=== PATIENT | female | born 1985 | race Caucasian/White ===

== ENCOUNTER 2017-07-31 11:07 | Emergency (ER) | payer MEDICAID, OTHER ==
[~2017-07-31] VITALS: Ht 165.1 cm; Wt 50.0 kg
[~2017-07-31 11:07] MED LIST: TRAM50 PO
[2017-07-31 11:12] VITALS: BP 114/64; PULSE 95; RESP 16; TEMP 97.8; O2SAT 100
[2017-07-31] MEDS ORDERED: BACT800T5 PO (11:31)
[2017-07-31] MEDS ORDERED: MUPI2OIN TOPICAL (11:31)
--- NOTE | 2017-07-31 11:35 | PD ---
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 She states that it started as a pinpoint lesion but has increased in size and become more painful. She describes it as moderate pain. She is having difficulty putting her apron on for work and is concerned that it is a bad infection. She denies fevers, chills, chest pain, shortness of breath, back pain, flank pain. She denies medical history, occasions or illicit drug use. PFSH Past Medical History Autoimmune Disease: No Anxiety: Yes Depression: No Cancer: No Cardiovascular Problems: No Chemotherapy: No Diminished Hearing: No Endocrine: No Gastrointestinal Disorders: No Genitourinary: Yes Immune Disorder: No Implanted Vascular Access Dvce: No Musculoskeletal: No Neurologic: No Psychiatric: No Reproductive: No Respiratory: No Immunizations Current: Yes Radiation Therapy: No Tetanus Vaccination: < 5 Years Influenza Vaccination: No ?: Not LMP: About a month ago : 6 Para: 6 Miscarriage: 0 Tubal Ligation: Yes Past Surgical History Section: Yes Gynecologic Surgery: Yes (C SECTION & TUBAL LIGATION) Tonsillectomy: Yes Other Surgery: Yes Social History Alcohol Use: Yes (Occ.) Tobacco Use: Yes (1 PPD) Substance Use: Yes (Marijuana) Allergies-Medications (Allergen,Severity, Reaction): Coded Allergies: No Known Allergies (Verified , 07/31/17) Reported Meds & Prescriptions Reported Meds & Active Scripts Active Mupirocin Topical (Mupirocin) 2 % Oint 1 Applic TOPICAL BID Bactrim DS (Sulfamethoxazole-Trimethoprim) 800-160 Mg Tab 1 Tab PO BID Review of Systems Except as stated in HPI: all other systems reviewed are Neg Physical Exam Narrative GENERAL: Well-nourished, well-developed patient. SKIN: Focused skin assessment warm/dry. Abdomen Left lower quadrant/pelic with a 1 cm x 0.5 cm round lesion with superficial ulceration without exudate. Border of the lesion is slightly erythematous. TTP to 1-2 cm surrounding the lesion. No evidence of lymphangitic Spread, abdominal pain, lymphadenopathy. No induration or fluctuance over area. HEAD: Normocephalic. EYES: No scleral icterus. No injection or drainage. NECK: Supple, trachea midline. No JVD or lymphadenopathy. CARDIOVASCULAR: Regular rate and rhythm without murmurs, gallops, or rubs. RESPIRATORY: Breath sounds equal bilaterally. No accessory muscle use. GASTROINTESTINAL: Abdomen soft, non-tender, nondistended. MUSCULOSKELETAL: No cyanosis, or edema. BACK: Nontender without obvious deformity. No CVA tenderness. 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 She states that it started as a pinpoint lesion but has increased in size and become more painful over the last 3 days. She describes it as moderate pain. She is having difficulty putting her apron on for work and is concerned that it is a bad infection. She denies fevers, chills, chest pain, shortness of breath, back pain, flank pain. She denies medical history, medication or illicit drug use. I have no reason to believe this is a more complicated case then a superficial skin infection. Patient appears healthy, denies any previous medical history, illicit drug use, works as a switchboard operator assistant. I was unable to express fluid from the site. Patient and her grandmother were advised of reasons to return to the emergency department and they understand and agree. Diagnosis Primary Impression: Skin infection Patient Instructions: Acute Wounds (ED), General Instructions Additional Instructions: Keep area clean and dry. You may use a Band-Aid or other clean dressing to reduce friction closed. Use mupirocin twice a day for 3-5 days. Complete all antibiotics as prescribed. If the scan becomes more red or painful return to the emergency department for further treatment and evaluation. Recommend obtaining a primary care physician for regular follow-ups. Scripts Mupirocin Topical (Mupirocin Topical) 2 % Oint 1 APPLIC TOPICAL BID for Mgmt Bacterial Infection, #1 TUBE 0 Refills Prov: Heavenly Carreon 07/31/17 Sulfamethoxazole-Trimethoprim (Bactrim DS) 800-160 Mg Tab 1 TAB PO BID for Infection, #14 TAB 0 Refills Prov: Heavenly Carreon 07/31/17 Disposition: 01 DISCHARGE HOME Condition: Stable Heavenly Carreon Jul 31, 2017 11:35
== END 2017-07-31 11:40 | disposition home or self-care (01) ==
LOC: PHEFT 11:07
DX: L08.9 Local infection of the skin and subcutaneous tissue, unspecified (principal)
CPT/HCPCS: 99284

== ENCOUNTER 2018-02-23 22:04 | Emergency (ER) | payer OTHER ==
[~2018-02-23] VITALS: Ht 165.1 cm; Wt 55.9 kg
[~2018-02-23 22:04] MED LIST changes: +BACT800T5 PO; +MUPI2OIN TOPICAL; -TRAM50 PO
[2018-02-23 22:08] VITALS: BP 151/70; PULSE 102; RESP 18; TEMP 98.6; O2SAT 98
[2018-02-23] MEDS ORDERED: oxyCODONE/ACETAMINOPHEN 5 MG/325 MG TAB PO ONE (22:30)
--- NOTE | 2018-02-23 22:38 | RADRPT ---
EXAM DATE/TIME: 02/23/2018 22:26 [facility] COMPARISON: No previous studies available for comparison. INDICATIONS : Right hand, fourth and fifth metacarpal pain post punching a wall. MEDICAL HISTORY : None. SURGICAL HISTORY : None. ENCOUNTER: Initial ACUITY: 2 days PAIN SCORE: 9/10 LOCATION: Right upper extremity FINDINGS: Three view examination of the right hand demonstrates no soft tissue swelling, dislocation, or fractu re. The carpal bones appear intact. The interphalangeal and metacarpophalangeal joints are intact. Bony mineralization is normal. No radiopaque foreign body. CONCLUSION: Intact right hand. Kalin Holt MD on February 23, 2018 at 22:35 Board Certified Radiologist. This report was verified electronically.
[2018-02-23] MEDS ORDERED: NORC5TAB PO (22:46)
--- NOTE | 2018-02-23 22:46 | PD ---
HPI Chief Complaint: Injury Time Seen by Provider: 22:16 Travel History International Travel<30 days: No Contact w/Intl Traveler<30days: No Traveled to known affect area: No History of Present Illness HPI Patient is a 32-year-old female comes in complaining of right hand pain after punching a wall last night. She says she was intoxicated and she punched a concrete wall. She now has pain to the right fourth and fifth fingers. She tried taking Tylenol and this did not help with the pain. She denies any other injuries. Severity is mild to moderate. PFSH Past Medical History Autoimmune Disease: No Anxiety: Yes Depression: No Cancer: No Cardiovascular Problems: No Chemotherapy: No Diminished Hearing: No Endocrine: No Gastrointestinal Disorders: No Genitourinary: Yes Immune Disorder: No Implanted Vascular Access Dvce: No Musculoskeletal: No Neurologic: No Psychiatric: No Reproductive: No Respiratory: No Immunizations Current: Yes Radiation Therapy: No Influenza Vaccination: No ?: Not LMP: 02/02/18 : 6 Para: 6 Miscarriage: 0 Tubal Ligation: Yes Past Surgical History Section: Yes (X1) Gynecologic Surgery: Yes (C SECTION & TUBAL LIGATION) Tonsillectomy: Yes Other Surgery: Yes Social History Alcohol Use: Yes (Occ.) Tobacco Use: Yes (1 PPD) Substance Use: Yes (Marijuana) Allergies-Medications (Allergen,Severity, Reaction): Coded Allergies: No Known Allergies (Verified Adverse Reaction, Unknown, 02/23/18) Reported Meds & Prescriptions Reported Meds & Active Scripts Active No Active Prescriptions or Reported Medications Review of Systems General / Constitutional: No: Fever, Chills HENT: No: Headaches, Lightheadedness Cardiovascular: No: Chest Pain or Discomfort Respiratory: No: Shortness of Breath Gastrointestinal: No: Nausea, Vomiting Musculoskeletal: Positive: Pain Skin: Positive Change in Pigmentation Neurologic: No: Weakness, Dizziness Physical Exam Narrative GENERAL: Awake and alert, in no acute distress. SKIN: Focused skin assessment warm/dry. Ecchymosis over the dorsal side of the right hand beneath the fourth and fifth finger. HEAD: Atraumatic. Normocephalic. EYES: Pupils equal and round. No scleral icterus. ENT: No nasal bleeding or discharge. Mucous membranes pink and moist. CARDIOVASCULAR: Regular rate and rhythm. No murmur appreciated. RESPIRATORY: No accessory muscle use. Clear to auscultation. Breath sounds equal bilaterally. MUSCULOSKELETAL: No obvious deformities. No clubbing. No cyanosis. No edema. Pain with movement of the right hand. Tender to palpation along the dorsal side of the hand below the fourth and fifth finger. Radial pulse intact. Sensation intact. NEUROLOGICAL: Awake and alert. No obvious cranial nerve deficits. Motor grossly within normal limits. Normal speech. . Data Data Last Documented VS Vital Signs Date Time Temp Pulse Resp B/P (MAP) Pulse Ox O2 Delivery O2 Flow Rate FiO2 02/23/18 22:08 98.6 102 18 151/70 (97) 98 Orders Orders Hand, Complete ([id number]) (02/23/18 ) Oxycodone-Acetamin 5-325 Mg (Percocet (02/23/18 22:30) MDM Medical Decision Making Medical Screen Exam Complete: Yes Emergency Medical Condition: Yes Medical Record Reviewed: Yes Differential Diagnosis Hand fracture versus sprain versus contusion Narrative Course Patient is a 32-year-old female comes in complaining of hand pain after punching a concrete wall. Exam shows tenderness to palpation as well as ecchymosis. X-ray performed shows no evidence of fracture. Patient given pain medicine. She is advised to take ibuprofen as needed for pain at home. Given a prescription for a few [place]. Advised to apply ice. Advised to avoid punching chen. Advised return to the ED as needed for any worsening symptoms. Diagnosis Primary Impression: Hand contusion Qualified Codes: S60.221A - Contusion of right hand, initial encounter Patient Instructions: General Instructions, Hand Sprain (ED) Additional Instructions: Apply ice to her hand. Take ibuprofen as needed for pain. You can take a [place] for severe pain, but be careful as it may make you drowsy. Return to the ED as needed for any worsening symptoms. Scripts Hydrocodone-Acetaminophen ([place]) 5 Mg-325 Mg Tab 1 TAB PO Q6H Y for PAIN, #4 TAB 0 Refills Prov: Lanette Domínguez MD 02/23/18 Disposition: 01 DISCHARGE HOME Condition: Stable Lanette Domínguez MD Feb 23, 2018 22:46
== END 2018-02-23 22:55 | disposition home or self-care (01) ==
LOC: PHED 22:04
DX: S60.221A Contusion of right hand, initial encounter (principal); W22.09XA Striking against other stationary object, initial encounter; F41.9 Anxiety disorder, unspecified; F17.200 Nicotine dependence, unspecified, uncomplicated; F12.90 Cannabis use, unspecified, uncomplicated
CPT/HCPCS: 73130; 99283